=== PATIENT | female | born 2000 | race Caucasian/White ===

== ENCOUNTER 2024-09-08 07:56 | Inpatient (IN) ==
--- NOTE | 2024-09-08 08:30 | Labor Progress Brief Note ---
Date of Service September 08, 2024 Subjective Gush of fluid @ 0400, contractions since then. Good FM no VB. Cvx 2-3cm per RN, was closed last week in office. No obvious LOF and ?palpable intact bag during exam per RN. FHT Cat 1 [place] active Q2-3 and palpate strong per RN. Will ambulate and reassess in 1-2 hours. If not laboring or ruptured has IOL tomorrow but seems likely to be going into labor today Results & Data Vital Signs (Past 12 Hours) Vital Signs Temp Pulse Resp BP 09/08/24 08:01 77 132/78 09/08/24 08:00 98.4 F 18 Coding Level of Care Code None
[2024-09-08] MEDS ORDERED: LIDOCAINE 1% LOCAL 20 ML VIAL INFIL PRN (09:31)
[2024-09-08] MEDS ORDERED: OXYTOCIN 30 UNITS/NSS 30 UNITS/500 ML BAG IV PRN ×2 (09:31→19:47)
[2024-09-08] MEDS: LACTATED RINGER'S 1,000 ML IV PRN (09:39)
[2024-09-08] MEDS ORDERED: NALOXONE HCL 0.4 MG/1 ML VIAL/CARP IV PRN (09:44)
[2024-09-08] MEDS ORDERED: ePHEDrine sulfate 50 MG/ML AMP IV PRN (09:44)
[2024-09-08] MEDS ORDERED: SODIUM CHLORIDE 0.9% PF INJ 10 ML VIAL EPI PRN (09:44)
[2024-09-08] MEDS ORDERED: ROPIVACAINE 0.5% PF 5 MG/ML 20 ML VIAL EPI PRN (09:44)
[2024-09-08] MEDS ORDERED: diphenhydrAMINE 50 MG/ML VIAL IV PRN (09:44)
[2024-09-08] MEDS ORDERED: NALOXONE HCL 1 MG in SODIUM CHLORIDE 0.9% 1,000 ML IV PRN (09:44)
[2024-09-08] MEDS ORDERED: NALBUPHINE HCL INJ 10 MG/ML AMP IV PRN (09:44)
[2024-09-08] MEDS ORDERED: LIDOCAINE 2% MPF LOCAL 5 ML VIAL EPI PRN (09:44)
[2024-09-08] MEDS ORDERED: fentaNYL citrate PF 100 MCG/2 ML VIAL EPI PRN (09:44)
--- NOTE | 2024-09-08 09:44 | Anesthesiology Consultation ---
Date of Service September 08, 2024 Assessment & Plan (1) Encounter for pre-operative examination: Chart Review Chart Review: Patient NOT seen in Pre Admission Testing and Acceptable Risk for Labor Epidural Consults Requested none History Height/Weight Height: 5 ft 5 in Weight: 78.925 kg Allergies Allergy/AdvReac Type Severity Reaction Status Date / Time No Known Allergies Allergy Unknown Verified 09/03/24 12:38 Medications Home Medications Medication Instructions Recorded Confirmed Last Taken vits no.124-ferrous fum 1 tab PO DAILY 09/08/24 09/08/24 09/06/24 27 mg iron-folic acid 800 mcg tablet ( Vitamin) Active Medications Generic Name Dose Route Start Last Admin Trade Name Freq PRN Reason Stop Dose Admin Lactated Ringer's 1,000 mls @ 125 mls/hr 09/08/24 09:31 09/08/24 09:39 Lr IV 09/10/24 09:30 999 mls/hr .Q8H PRN Administration L&D Protocol Protocol Past Medical History Medical History Pityriasis rosea COVID-19 Acne Varicella vaccination Fracture of tibial plateau, closed Right Past Family History Family History Denies family history of Ovarian cancer Breast cancer Colorectal cancer Past Surgical History Surgical History Status post surgery jaw surgery Social History Smoking Status: Former smoker Do You Dip or Chew Tobacco: No Hx Alcohol Use: No Hx Substance Use: No Physical Exam Vital Signs Last Vital Signs Temp 98.4 F 09/08/24 08:00 Pulse 79 09/08/24 09:23 Resp 18 09/08/24 08:00 BP 137/78 09/08/24 09:23
[2024-09-08 09:56] LABS: Hematocrit (blood only) 33.8 % (37.0-47.0); Mean Corpuscular Hemoglobin 26.8 pg (25.0-34.0); Mean Corpuscular Hgb Conc 32.5 g/dL (32.0-36.0); Mean Corpuscular Volume 82.2 fL (80.0-100.0); Mean Platelet Volume 12.9 fL (9.4-12.4); Platelet Count 219 K/uL (130-400); RDW Coefficient of Variation 12.5 % (11.5-14.5); RDW Standard Deviation 37.5 fL (36.4-46.3); Red Blood Count 4.11 M/uL (4.20-5.40); White Blood Count 16.34 K/ul (4.8-10.8)
[2024-09-08] MEDS: BUPIVACAINE 0.25% PF 30 ML VIAL EPI PRN (10:20)
[2024-09-08] MEDS: fentANYL 2 MCG/ML BUPIVacaine 0.125%-NSS 100ML BAG EPI PRN (10:20)
[2024-09-08] MEDS: LIDOCAINE 2%/EPINEPHRINE 1:200,000 20 ML PF EPI STA (10:21)
--- NOTE | 2024-09-08 11:26 | Labor Progress Brief Note ---
Date of Service September 08, 2024 Subjective Comfortable with epidural Assessment & Plan (1) Normal labor: Plan: +Epid, +AROM, will start pitocin augmentation, anticipate . Mec noted, nursery aware. Admission and Anticipated Discharge Date Admission Date: September 08, 2024 Physical Exam Genitourinary: /-1 AROM thick dark mec fluid FHT Cat 1 [place] Q2-5 somewhat irregular Results & Data Vital Signs (Past 12 Hours) Vital Signs Temp Pulse Resp BP Pulse Ox 09/08/24 11:20 83 96 09/08/24 11:19 77 126/60 09/08/24 11:15 93 H 98 09/08/24 11:14 86 110/56 L 09/08/24 11:10 80 98 09/08/24 11:09 70 106/58 L 09/08/24 11:05 81 97 09/08/24 11:03 82 99/54 L 09/08/24 11:00 80 102/55 L 96 09/08/24 10:55 86 113/57 L 99 09/08/24 10:50 80 105/51 L 97 09/08/24 10:45 86 98 09/08/24 10:44 81 09/08/24 10:44 88 105/56 L 93 09/08/24 10:40 86 105/57 L 99 09/08/24 10:35 89 98 09/08/24 10:33 89 103/57 L 09/08/24 10:30 87 99 09/08/24 10:28 86 103/60 09/08/24 10:25 86 98 09/08/24 10:23 90 112/58 L 09/08/24 10:21 85 106/51 L 09/08/24 10:20 86 100 09/08/24 10:19 86 121/56 L 09/08/24 10:15 90 134/73 100 09/08/24 10:10 88 99 09/08/24 10:08 100 H 94 09/08/24 10:05 95 H 100 09/08/24 10:00 89 99 09/08/24 09:55 96 H 100 09/08/24 09:23 79 137/78 09/08/24 08:01 77 132/78 09/08/24 08:00 98.4 F 18 Coding Level of Care Code None Diagnoses Normal labor O80; Z37.9
[2024-09-08] MEDS: OXYTOCIN 30 UNITS/NSS 30 UNITS/500 ML BAG IV PRN (13:13)
[2024-09-08] MEDS: fentaNYL citrate PF 100 MCG/2 ML VIAL ONE (15:14)
[2024-09-08] MEDS: ePHEDrine sulfate 50 MG/ML AMP ONE (15:14)
[2024-09-08] MEDS: fentANYL 2 MCG/ML BUPIVacaine 0.125%-NSS 100ML BAG ONE (15:14)
[2024-09-08] MEDS: LIDOCAINE 2%/EPINEPHRINE 1:200,000 20 ML PF ONE (15:14)
[2024-09-08] MEDS: SODIUM CHLORIDE 0.9% PF INJ 10 ML VIAL ONE (15:14)
[2024-09-08] MEDS: BUPIVACAINE 0.25% PF 30 ML VIAL ONE (15:14)
[2024-09-08] MEDS: BUPIVACAINE 0.25% PF 30 ML VIAL EPI STA (15:15)
[2024-09-08] MEDS: SODIUM CHLORIDE 0.9% PF INJ 10 ML VIAL EPI STA (15:15)
[2024-09-08] MEDS: fentaNYL citrate PF 100 MCG/2 ML VIAL EPI STA (15:15)
--- NOTE | 2024-09-08 19:41 | Delivery Summary ---
Vaginal Delivery Summary Date of Service September 08, 2024 Vaginal Delivery Summary DIAGNOSES: 1. Owen intrauterine at 40w4d gestation. 2. Spontaneous onset of labor. 3. Group B Streptococcus Neg. PROCEDURE: Spontaneous vaginal delivery without laceration. SURGEON: Heaven Willis MD. HEDGE TRIMMER: None. QUANTITATIVE BLOOD LOSS: 275 mL. COMPLICATIONS: None. PLACENTA: Spontaneous and intact with a 3-vessel cord. DISPOSITION: Stable to labor and delivery. DESCRIPTION: The patient pushed well and brought the head to in DOA position. The 's head was allowed to deliver with contraction force and no further active pushing, with the perineum protected during this time. There was 1 loop of nuchal cord. The right shoulder was anterior. The shoulders and body delivered without any difficulty, and the infant was placed on the maternal abdomen. It was vigorous and moving all extremities, and making respiratory efforts. The cord was doubly clamped by the MD and then cut by the FOB. The placenta delivered spontaneously and was noted to be intact and with a 3VC. The cervix, vagina and perineum were examined and were found to be without defect requiring repair. The fundus was firm and lochia minimal immediately after delivery. [facility] [place] Vaginal Delivery Charge Vaginal Delivery Codes: 03578 global code for the antepartum, delivery, and post-
[2024-09-08] MEDS ORDERED: BENZOCAINE 20% SPRY 85 APPLN/85 GM CAN EXT PRN (19:47)
[2024-09-08] MEDS ORDERED: bisacodyL 10 MG SUPP PR PRN (19:47)
[2024-09-08] MEDS ORDERED: ACETAMINOPHEN 325 MG TAB PO PRN (19:47)
[2024-09-08] MEDS ORDERED: HYDROCORTISONE ACETATE 25 MG SUPP PR PRN (19:47)
[2024-09-08] MEDS: DIPHTHER/TETAN/PERTUS Vaccine (Tdap, Adol/Adult) 0.5mL IM ONE (22:06)
[2024-09-08] MEDS: DOCUSATE SODIUM 100 MG CAP PO SCH (22:06)
[2024-09-08] MEDS: IBUPROFEN 600 MG TAB PO PRN (22:08)
[2024-09-09 06:27] LABS: Hematocrit (blood only) 29.4 % (37.0-47.0); Hemoglobin 9.6 g/dl (12.0-16.0); Mean Corpuscular Hemoglobin 26.7 pg (25.0-34.0); Mean Corpuscular Hgb Conc 32.7 g/dL (32.0-36.0); Mean Corpuscular Volume 81.9 fL (80.0-100.0); Mean Platelet Volume 12.8 fL (9.4-12.4); Platelet Count 196 K/uL (130-400); RDW Coefficient of Variation 12.7 % (11.5-14.5); RDW Standard Deviation 37.8 fL (36.4-46.3); Red Blood Count 3.59 M/uL (4.20-5.40); White Blood Count 19.61 K/ul (4.8-10.8)
--- NOTE | 2024-09-09 06:34 | Obstetrical Progress Note ---
Date of Service September 09, 2024 Assessment & Plan (1) Encounter for assessment: Plan: Patient is PPD 1 s/p and doing well - Eating well, voiding well, ambulating well - vitals reviewed and within normal limits - pain well controlled with analgesics - OOB, ambulation, diet progression as tolerated - Blood type: A+, GBS neg, rubella immune - Plan to discharge tomorrow - After discharge, 6 week follow up with OB Admission and Anticipated Discharge Date Admission Date: September 08, 2024 Supervising Physician Co-Signing Physician Notes Resident Physician Supervision Note: I interviewed and examined the patient. Discussed with Dr. Betancourt and agree with findings and plan as documented in the note. Any exceptions or clarifications are listed here: [ ] Documented By: Heaven Willis MD, FACOG Subjective 24 yo post- day 1 s/p Ambulation: ambulating normally Voiding: no voiding problems Passing Gas:: Yes Diet Tolerance:: regular diet Lochia:: Small Feeding Type:: breast feeding Current Pain Level:3-4/10 Resting comfortably this AM in NAD. Denies BANERJEE, CP, SOB, N/V/D, LE pain/swelling. Physical Exam Physical Exam: General: patient resting comfortably, NAD, non-toxic in appearance, answers questions appropriately. Skin: warm, dry, intact HEENT: NC/AT, anicteric sclera, conjunctiva without injection, moist mucus membranes. Heart: +S1/S2, regular, no m/r/g Lungs: equal air entry bilaterally, no rales/rhonchi/wheezes Abd: +BS, soft, NT/ND, uterine fundus firm at umbilicus Ext: warm, no clubbing/cyanosis or edema, Doris's neg. Neuro: nonfocal, speech intact, no facial droop, moving all extremities. Results & Data Vital Signs (Past 12 Hours) Vital Signs Temp Pulse Pulse Resp BP BP Pulse Ox 09/09/24 03:05 36.5 C 82 18 108/67 98 09/08/24 23:00 36.7 C 70 18 119/81 98 09/08/24 21:40 18 09/08/24 21:40 85 130/62 09/08/24 21:34 83 129/76 09/08/24 21:19 87 136/68 09/08/24 21:10 18 09/08/24 21:04 83 128/66 09/08/24 20:49 84 121/79 09/08/24 20:40 18 09/08/24 20:35 91 H 111/65 09/08/24 20:31 91 H 128/72 09/08/24 20:25 18 09/08/24 20:19 87 145/78 H 09/08/24 20:10 18 09/08/24 20:04 82 124/76 09/08/24 19:55 18 09/08/24 19:50 90 117/76 09/08/24 19:40 18 09/08/24 19:37 112 H 112/69 09/08/24 19:35 93 H 98 09/08/24 19:33 107 H 93 09/08/24 19:30 118 H 90 09/08/24 19:25 108 H 100 09/08/24 19:20 100 H 99 09/08/24 19:18 91 H 94 09/08/24 19:15 36.5 C 99 H 18 98 09/08/24 19:12 95 H 92 09/08/24 19:10 90 98 09/08/24 19:05 93 H 100 09/08/24 19:04 96 H 131/74 09/08/24 19:00 20 09/08/24 19:00 90 20 100 09/08/24 18:59 93 H 129/75 09/08/24 18:55 94 H 91 09/08/24 18:50 93 H 135/81 100 09/08/24 18:45 92 H 100 09/08/24 18:40 89 100 09/08/24 18:36 98 H 136/88 09/08/24 18:35 100 H 92 O2 Del Method 09/09/24 03:05 Room Air 09/08/24 23:00 Room Air 09/08/24 21:40 09/08/24 21:40 09/08/24 21:34 09/08/24 21:19 09/08/24 21:10 09/08/24 21:04 09/08/24 20:49 09/08/24 20:40 09/08/24 20:35 09/08/24 20:31 09/08/24 20:25 09/08/24 20:19 09/08/24 20:10 09/08/24 20:04 09/08/24 19:55 09/08/24 19:50 09/08/24 19:40 09/08/24 19:37 09/08/24 19:35 09/08/24 19:33 09/08/24 19:30 09/08/24 19:25 09/08/24 19:20 09/08/24 19:18 09/08/24 19:15 09/08/24 19:12 09/08/24 19:10 09/08/24 19:05 09/08/24 19:04 09/08/24 19:00 09/08/24 19:00 09/08/24 18:59 09/08/24 18:55 09/08/24 18:50 09/08/24 18:45 09/08/24 18:40 09/08/24 18:36 09/08/24 18:35 Resident Activity Tracking Resident Involvement: Resident Care Provided Care Provided: OB Delivery (1) Encounter for assessment visit type: exam and care immediately after delivery Qualified Code(s): Z39.0 - Encounter for care and examination of mother immediately after delivery
[2024-09-09] MEDS: PRENATAL VITAMIN 1 TAB PO SCH (07:50)
--- NOTE | 2024-09-09 08:11 | Anesthesia Procedure Note ---
Date of Service September 09, 2024 Anesthesia Post Epidural Note Vital Signs Vital Signs: Temp Pulse Resp BP Pulse Ox O2 Del Method 36.5 C 82 18 108/67 98 Room Air 09/09/24 03:05 09/09/24 03:05 09/09/24 03:05 09/09/24 03:05 09/09/24 03:05 09/09/24 03:05 Pain Intensity Lower Abdomen: Pain Intensity: 8 Perineal: Pain Intensity: 3 Notes Mental Status: alert / awake / arousable and participated in evaluation Nausea / Vomiting: adequately controlled Pain: adequately controlled Airway Patency, RR, SpO2: stable & adequate BP & HR: stable & adequate Hydration State: stable & adequate Neuraxial Anesthesia: was administered and sensory block is resolving Anesthetic Complications: no major complications apparent Epidural: Removed without complications and With tip intact
[2024-09-09] MEDS: bisacodyL 5 MG TABEC PO SCH (19:48)
[2024-09-09] MEDS: CALCIUM CARBONATE 500 MG CHEWABLE TAB PO PRN (21:45)
[2024-09-10] MEDS: oxyCODONE/ACETAMINOPHEN 5mg/325mg TAB PO PRN (00:42)
[2024-09-10 06:24] LABS: Hematocrit (blood only) 30.9 % (37.0-47.0)
--- NOTE | 2024-09-10 07:00 | Obstetrical Progress Note ---
Date of Service September 10, 2024 Assessment & Plan (1) Encounter for assessment: Plan: Patient is PPD 2 s/p and doing well - Eating well, voiding well, ambulating well - vitals reviewed and within normal limits - pain well controlled with analgesics - OOB, ambulation, diet progression as tolerated - Blood type: A+, GBS neg, rubella immune - Plan to discharge today - After discharge, 6 week follow up with OB Admission and Anticipated Discharge Date Admission Date: September 08, 2024 Supervising Physician Co-Signing Physician Notes Resident Physician Supervision Note: I was present with Dr. Betancourt during the history and exam. I discussed the case with the resident and agree with the findings and plan as documented in the note. Any exceptions or clarifications are listed here: doing well, heartburn overnight got better with TUMS. eating, voiding, ambulating, no bleeding issues or pain issues. abd soft ff 2 down nt, ext nt calves. ppd#2 s/p , ready for dc home, instructions reviewed, f/u 6wks pp check. breast, rhpos, ri. Documented By: Jayne Clayton MD, FACOG Subjective 24 yo post- day 2 s/p Ambulation: ambulating normally Voiding: no voiding problems Passing Gas:: Yes Diet Tolerance:: regular diet Lochia:: Small Feeding Type:: breast feeding Current Pain Level:2/10 Resting comfortably this AM in NAD. Denies BANERJEE, CP, SOB, N/V/D, LE pain/swelling. Physical Exam Physical Exam: General: patient resting comfortably, NAD, non-toxic in appearance, answers questions appropriately. Skin: warm, dry, intact HEENT: NC/AT, anicteric sclera, conjunctiva without injection, moist mucus membranes. Heart: +S1/S2, regular, no m/r/g Lungs: equal air entry bilaterally, no rales/rhonchi/wheezes Abd: +BS, soft, NT/ND, uterine fundus firm at umbilicus Ext: warm, no clubbing/cyanosis or edema, Doris's neg. Neuro: nonfocal, speech intact, no facial droop, moving all extremities. Results & Data Vital Signs (Past 12 Hours) Vital Signs Temp Pulse Pulse Resp BP Pulse Ox O2 Del Method 09/10/24 00:45 36.7 C 87 18 124/69 96 Room Air 09/09/24 19:46 36.5 C 76 18 105/65 98 Room Air Resident Activity Tracking Resident Involvement: Resident Care Provided Care Provided: OB Delivery (1) Encounter for assessment visit type: exam and care immediately after delivery Qualified Code(s): Z39.0 - Encounter for care and examination of mother immediately after delivery
[2024-09-10 08:43] VITALS: BP 116/74; RESP 16; TEMP 98.6; O2SAT 98
[2024-09-10 08:47] VITALS: PULSE 87
== END 2024-09-10 12:01 | disposition home or self-care (01) | DRG 807 ==
LOC: OPB 07:56 → 4S1 07:57 → 4E2 23:01